=== PATIENT | male | born 1975 | race Caucasian/White ===

== ENCOUNTER 2020-10-28 05:36 | Observation (INO) | payer OTHER ==
[2020-10-28] MEDS ORDERED: Ondansetron 4 MG/2 ML SDV IVPUSH ONE (05:55)
[2020-10-28] MEDS ORDERED: HYDROmorphone 1 MG/ML Syringe IVPUSH ONE (05:55)
[2020-10-28] MEDS ORDERED: Sodium Chloride 0.9% 10 ML Syringe FLUSH PRN (05:55)
[2020-10-28] MEDS ORDERED: Sodium Chloride 0.9% 1,000 ML IV SCH (06:00)
--- NOTE | 2020-10-28 06:08 | EDM.PDOC ---
ED HPI GENERAL MEDICAL PROBLEM - General Chief Complaint: Abdominal Pain Stated Complaint: ABDOMINAL PAIN Time Seen by Provider: 10/28/20 05:54 Source of Information: Reports: Patient History Limitations: Reports: No Limitations - History of Present Illness INITIAL COMMENTS - FREE TEXT/NARRATIVE: Boyd is a 45-year-old male from [facility] presenting to the ED with acute onset of severe right lower quadrant pain associated with anorexia, diaphoresis and chills. The patient is currently camping and was in his usual state of health when he went to bed last night. He woke up in the 10th this morning with shaking chills. He has 10 out of 10 right lower quadrant abdominal pain. He does have some nausea but has not vomited. He had a normal bowel movement yesterday. He denies any diarrhea. He does have a history of kidney stones but states that this feels much different. His past surgeries are significant for tonsils and adenoids but he still has his appendix and gallbladder. He is otherwise healthy. RLQ Pain Score (Numeric/FACES): 9 - Related Data Allergies Allergy/AdvReac Type Severity Reaction Status Date / Time No Known Allergies Allergy Verified 10/28/20 05:44 Home Meds: Home Meds Omeprazole 20 mg PO DAILY 10/28/20 [History] Past Medical History Respiratory History: Reports: Asthma, Other (See Below) Other Respiratory History: exercise induced asthma Gastrointestinal History: Reports: Other (See Below) Other Gastrointestinal History: Acid reflux Genitourinary History: Reports: Renal Calculus Musculoskeletal History: Reports: Fracture Psychiatric History: Reports: Anxiety Dermatologic History: Reports: Other (See Below) Other Dermatologic History: disecting cellulitis of the scalp - Infectious Disease History Infectious Disease History: Reports: Chicken Pox - Past Surgical History HEENT Surgical History: Reports: Adenoidectomy Social & Family History - Tobacco Use Tobacco Use Status *Q: Never Tobacco User - Caffeine Use Caffeine Use: Reports: Coffee, Soda, Tea - Recreational Drug Use Recreational Drug Use: No ED ROS GENERAL - Review of Systems Review Of Systems: See Below Constitutional: Reports: Chills, Malaise, Diaphoresis, Decreased Appetite HEENT: Reports: No Symptoms Respiratory: Reports: No Symptoms Cardiovascular: Reports: No Symptoms Endocrine: Reports: No Symptoms GI/Abdominal: Reports: Abdominal Pain (Right lower quadrant abdominal pain), Anorexia, Decreased Appetite, Nausea. Denies: Diarrhea, Vomiting : Reports: No Symptoms Musculoskeletal: Reports: No Symptoms Skin: Reports: Pallor Neurological: Reports: No Symptoms Psychiatric: Reports: No Symptoms Hematologic/Lymphatic: Reports: No Symptoms Immunologic: Reports: No Symptoms ED EXAM, GI/ABD - Physical Exam Exam: See Below Exam Limited By: No Limitations General Appearance: Alert, Anxious, Moderate Distress Eyes: Bilateral: EOMI Throat/Mouth: Normal Inspection, Normal Oropharynx, Normal Voice, No Airway Compromise Head: Atraumatic, Normocephalic Neck: Normal Inspection, Supple, Non-Tender, Full Range of Motion Respiratory/Chest: No Respiratory Distress, Lungs Clear, Normal Breath Sounds Cardiovascular: Normal Peripheral Pulses, Regular Rate, Rhythm GI/Abdominal Exam: Guarding (Right lower quadrant), Rebound (Plus or minus rebound tenderness), Tender (Right lower quadrant), Abnormal Bowel Sounds (Decreased bowel sounds) Back Exam: Normal Inspection, Full Range of Motion. No: CVA Tenderness (L) Extremities: Normal Inspection, Normal Range of Motion, No Pedal Edema, Normal Capillary Refill Neurological: Alert, Oriented, Normal Cognition, No Motor/Sensory Deficits Psychiatric: Normal Affect, Anxious Skin Exam: Warm, Dry, Intact, Pallor Lymphatic: No Adenopathy Course - Vital Signs Last Recorded V/S: Last Vital Signs Temp 36.0 C L 10/28/20 05:53 Pulse 38 L 10/28/20 05:53 Resp 22 H 10/28/20 05:53 BP 137/70 10/28/20 05:53 Pulse Ox 98 10/28/20 05:53 - Orders/Labs/Meds Orders: Active Orders 24 hr Category Date Time Status Abdomen Pelvis w Cont [CT] Stat Exams 10/28/20 05:55 Ordered UA W/MICROSCOPIC [URIN] Stat Lab 10/28/20 05:55 Ordered Sodium Chloride 0.9% [Normal Saline] 1,000 ml Med 10/28/20 06:00 Ordered IV ASDIRECTED Sodium Chloride 0.9% [Normal Saline] 78 ml Med 10/28/20 06:15 Ordered IV ASDIRECTED Sodium Chloride 0.9% [Saline Flush] Med 10/28/20 05:55 Ordered 10 ml FLUSH ASDIRECTED PRN Saline Lock Insert [OM.PC] Routine Oth 10/28/20 05:55 Ordered Medication Orders Sodium Chloride (Normal Saline) 1,000 mls @ 999 mls/hr IV ASDIRECTED SNOW Last Admin: 10/28/20 06:02 Dose: 999 mls/hr Documented by: ADAMARIS Sodium Chloride (Normal Saline) 78 mls @ 3.5 mls/sec IV ASDIRECTED SNOW Last Admin: 10/28/20 06:26 Dose: 3.5 mls/sec Documented by: ABHI Sodium Chloride (Sodium Chloride 0.9% 10 Ml Syringe) 10 ml FLUSH ASDIRECTED PRN PRN Reason: Keep Vein Open Last Admin: 10/28/20 06:05 Dose: 10 ml Documented by: ADAMAIRS Labs: Laboratory Tests 10/28/20 10/28/20 10/28/20 Range/Units 05:52 05:52 06:06 WBC 8.5 (4.5-11.0) K/uL RBC 4.82 (4.30-5.90) M/uL Hgb 14.5 (12.0-15.0) g/dL Hct 43.3 (40.0-54.0) % POC Hct 41 (36-48) % MCV 90 (80-98) fL MCH 30 (27-31) pg MCHC 34 (32-36) % Plt Count 268 (150-400) K/uL Neut % (Auto) 73.1 H (36-66) % Lymph % (Auto) 16.6 L (24-44) % Jasper % (Auto) 7.2 H (2-6) % Eos % (Auto) 2.2 (2-4) % Baso % (Auto) 0.9 (0-1) % POC Capillary pH 7.30 L (7.31-7.41) POC Capillary pCO2 54.8 H (41.0-51.0) mmHg POC Capillary pO2 28 L* mmHg POC Capillary HCO3 26.7 (23.0-28.0) mmol/L POC Capill Base Excess 0 mmol/L POC Capillary O2 Sat 50 % POC Sodium 144 (140-148) mmol/L POC Potassium 3.6 (3.5-4.9) mmol/L POC Total CO2 26.7 (24-29) mmol/L Creatinine 1.0 (0.8-1.3) mg/dL Est Cr Clr Drug Dosing 97.33 mL/min Estimated GFR (MDRD) > 60 (>60) POC WB Ioniz Calcium 1.22 (1.12-1.32) mmol/L Meds: Medications Generic Name Dose Route Start Last Admin Trade Name Freq PRN Reason Stop Dose Admin Sodium Chloride 1,000 mls @ 999 mls/hr 10/28/20 06:00 10/28/20 06:02 Normal Saline IV 999 mls/hr ASDIRECTED SNOW Administration Sodium Chloride 78 mls @ 3.5 mls/sec 10/28/20 06:15 10/28/20 06:26 Normal Saline IV 3.5 mls/sec ASDIRECTED SNOW Administration Sodium Chloride 10 ml 10/28/20 05:55 10/28/20 06:05 Sodium Chloride 0.9% 10 Ml Syringe FLUSH 10 ml ASDIRECTED PRN Administration Keep Vein Open Discontinued Medications Generic Name Dose Route Start Last Admin Trade Name Kimberly PRN Reason Stop Dose Admin Hydromorphone HCl 1 mg 10/28/20 05:55 10/28/20 06:01 Hydromorphone 1 Mg/Ml Syringe IVPUSH 10/28/20 05:56 1 mg ONETIME ONE Administration Iopamidol 127 ml 10/28/20 06:11 10/28/20 06:26 Iopamidol 612 Mg/Ml 500 Ml Multipack Bottle IV 10/28/20 06:12 127 ml ONETIME ONE Administration Ketorolac Tromethamine 30 mg 10/28/20 06:32 10/28/20 06:38 Ketorolac 30 Mg/Ml Sdv IVPUSH 10/28/20 06:33 30 mg ONETIME ONE Administration Ondansetron HCl 4 mg 10/28/20 05:55 10/28/20 06:02 Ondansetron 4 Mg/2 Ml Sdv IVPUSH 10/28/20 05:56 4 mg ONETIME ONE Administration Sodium Chloride 10 ml 10/28/20 06:11 10/28/20 06:26 Sodium Chloride 0.9% 10 Ml Syringe FLUSH 10/28/20 06:12 10 ml ONETIME ONE Administration - Radiology Interpretation Free Text/Narrative:: Millimeter stone in the proximal right ureter causing mild hydronephrosis and hydroureter. This appears to be about 5-1/2 to 6 cm below the renal pelvis. No other stones are identified, however, it is limited by IV contrast. The appendix is normal in size and is retrocecal. No other intra-abdominal abnormalities noted. - Re-Assessments/Exams Free Text/Narrative Re-Assessment/Exam: 10/28/20 06:08 an IV was established and labs were obtained including a CBC, basic metabolic profile, and urinalysis. Normal saline IV fluids were started 9 9 9 mL/h. Patient received Dilaudid 1 mg IV push and Zofran 4 mg IV push. The patient was sent off to CT of the abdomen pelvis with contrast. 10/28/20 06:[address] of the abdomen and pelvis with contrast showing a 5 mm ureterolithiasis in the proximal right ureter approximately 5 cm below the renal pelvis. The patient's labs show a normal CBC and venous blood gas. The patient has a sodium of 138 and a potassium of 4.6 with a bicarbonate of 26. Patient had no response to Dilaudid 1 mg IV so he was subsequently given Toradol 30 mg IV. He is still in significant pain and will likely need admission for pain control. The patient is camping and has limited access to adequate hydration. It is also unlikely that oral pain medicines are going to be adequate to control his pain thereby strengthening my position that he will likely need observation admission for pain control. I discussed the case with Dr. Momin will arrange for an observation admission for pain control. He will see the patient on the floor for the admission. Departure - Departure Time of Disposition: 07:00 Disposition: Refer to Observation Clinical Impression: Renal colic on right side, Calcium ureterolithiasis Hydronephrosis Qualifiers: Hydronephrosis type: with renal calculous obstruction Qualified Code(s): N13.2 - Hydronephrosis with renal and ureteral calculous obstruction - Discharge Information Referrals: PCP,None [Primary Care Provider] - Forms: ED Department Discharge Sepsis Event Note (ED) - Evaluation Sepsis Screening Result: No Definite Risk - Focused Exam Vital Signs: Vital Signs Temp Pulse Resp BP Pulse Ox 10/28/20 05:53 36.0 C L 38 L 22 H 137/70 98 10/28/20 05:52 36.0 C L 38 L 22 H 137/70 98 - Problem List & Annotations (1) Calcium ureterolithiasis SNOMED Code(s): 27936678 Code(s): N20.1 - CALCULUS OF URETER Status: Acute Priority: High Current Visit: Yes (2) Hydronephrosis SNOMED Code(s): 92848550 Code(s): N13.30 - UNSPECIFIED HYDRONEPHROSIS Status: Acute Priority: High Current Visit: Yes Qualifiers: Hydronephrosis type: with renal calculous obstruction Qualified Code(s): N13.2 - Hydronephrosis with renal and ureteral calculous obstruction (3) Renal colic on right side SNOMED Code(s): 8909043 Code(s): N23 - UNSPECIFIED RENAL COLIC Status: Acute Priority: High Current Visit: Yes - Problem List Review Problem List Initiated/Reviewed/Updated: Yes - My Orders Last 24 Hours: My Active Orders 10/28/20 05:55 Abdomen Pelvis w Cont [CT] Stat UA W/MICROSCOPIC [URIN] Stat Sodium Chloride 0.9% [Saline Flush] 10 ml FLUSH ASDIRECTED PRN Saline Lock Insert [OM.PC] Routine 10/28/20 06:00 Sodium Chloride 0.9% [Normal Saline] 1,000 ml IV ASDIRECTED 10/28/20 06:15 Sodium Chloride 0.9% [Normal Saline] 78 ml IV ASDIRECTED - Assessment/Plan Last 24 Hours: My Active Orders 10/28/20 05:55 Abdomen Pelvis w Cont [CT] Stat UA W/MICROSCOPIC [URIN] Stat Sodium Chloride 0.9% [Saline Flush] 10 ml FLUSH ASDIRECTED PRN Saline Lock Insert [OM.PC] Routine 10/28/20 06:00 Sodium Chloride 0.9% [Normal Saline] 1,000 ml IV ASDIRECTED 10/28/20 06:15 Sodium Chloride 0.9% [Normal Saline] 78 ml IV ASDIRECTED
[2020-10-28] MEDS ORDERED: Iopamidol 612 MG/ML 500 ML Multipack Bottle IV ONE (06:11)
[2020-10-28] MEDS ORDERED: Sodium Chloride 0.9% 10 ML Syringe FLUSH ONE (06:11)
[2020-10-28] MEDS ORDERED: Ketorolac 30 MG/ML SDV IVPUSH ONE (06:32)
[2020-10-28] MEDS ORDERED: Ondansetron 4 MG/2 ML SDV IVPUSH PRN (07:16)
--- NOTE | 2020-10-28 07:18 | CRLCT ---
HISTORY: Right lower quadrant pain. TECHNIQUE: CT abdomen and pelvis with IV contrast. 127 mL Isovue 300 IV. COMPARISON: None. FINDINGS: Abdomen: Approximately 8 x 1.5 cm lentiform area of hypodensity along the posterior lateral right lobe of the liver may be hepatic fluid or subcapsular. Few subcentimeter hypodense lesions in the liver are too small to characterize. No bile duct dilation. No pancreatic mass or pancreatic duct dilation. No spleen lesions. No adrenal nodules. Mildly decreased enhancement of the right kidney. 5 mm calculus in the proximal right ureter near the ureterovesical junction. Mild right hydronephrosis. No renal mass. No hydronephrosis on the left. No dilated bowel. Appendix is unremarkable. No free fluid. No lymphadenopathy. Abdominal aorta is normal caliber. Minimal aortic atherosclerosis. Pelvis: No lymphadenopathy. Musculoskeletal: Degenerative changes of the spine. Lower chest: Unremarkable. IMPRESSION: 1. 5 mm calculus in the proximal right ureter with mild right hydronephrosis. 2. Small amount of perihepatic fluid along the right lobe of the liver versus chronic subcapsular collection from prior hepatic insult. Dictated by Aly Ugalde MD @ 10/28/2020 7:18:11 AM Please note that all CT scans at this facility use dose modulation, iterative reconstruction, and/or weight-based dosing when appropriate to reduce radiation dose to as low as reasonably achievable. Dictated by: Aly Ugalde MD @ 10/28/2020 07:18:14 (Electronically Signed)
[2020-10-28] MEDS ORDERED: HYDROmorphone 0.5 MG/0.5 ML Syringe IVPUSH PRN (07:19)
[2020-10-28] MEDS ORDERED: Pantoprazole 40 MG Vial IVPUSH SCH (08:30)
[2020-10-28] MEDS ORDERED: Tamsulosin 0.4 MG Cap.ER PO SCH (09:00)
--- NOTE | 2020-10-28 09:37 | HP ---
IDENTIFYING DATA: Boyd Driver is a 45-year-old male from [place], [place]. CHIEF COMPLAINT: Right-sided abdominal pain. HISTORY OF PRESENT ILLNESS: This previously well 45-year-old male from [place] is camping at a local resort in [place], [place] with family. He reports he retired to bed without symptoms and awoke at 0400 with severe pain of the right mid to lower abdomen. He had accompanying nausea without emesis. Denies radiation to the inguinal area or left hemiabdomen. Mild transient aching at the right flank was also reported. He has had no diarrhea, melena, urinary urgency, incontinence, dysuria, or gross hematuria. He does report after an intensive run several weeks ago, he had a transient episode of visible hematuria and attributed this to the intensity of exercise. He has a remote history of single episode of ureteral stones characterized by mild aching in the lower abdomen. This was evaluated by his hometown physician and managed with diuresis and increased fluid intake. He has not had recurring episodes. He reports he believes he has had a previous inguinal herniorrhaphy in plate [place]. PAST MEDICAL HISTORY: Previous surgeries include adenoidectomy only as well as inguinal herniorrhaphy. No history of hypertension, diabetes, congenital heart disease, rheumatic fever, respiratory disease, or disease. He does have a history of chronic intermittent dyspepsia, managed with p.r.n. use of PPI agents. ALLERGIES: NONE NOTED. MEDICATIONS: Omeprazole 20 mg daily as needed for chronic dyspepsia. HABITS: Nonsmoker. Modest caffeinated beverage intake, estimating 2 to 5 coffees per day. Alcohol use is rare with 2 consumed during this week's family vacation. Immunizations reviewed. Has received COVID vaccine. SOCIAL HISTORY: Currently , vacationing and camping in the [place], [place] area with family including school age children and extended family including siblings and mother. He is attending [employer] school working on a degree in engineering with plans to proceed with a master's program as well. FAMILY HISTORY: Denies familial history of or GI disease. No familial history of recent acute gastrointestinal illness. REVIEW OF SYSTEMS: NEUROLOGIC: No history of headaches, strokes, seizures, auditory or visual changes. CARDIAC: No history of hypertension, diabetes, congenital heart disease, rheumatic fever, chest pain, palpitations, syncope. RESPIRATORY: Does report a history of mild childhood asthma with exercise-induced symptoms, managed with p.r.n. use of albuterol inhaler. No current difficulty noted with respiratory disease. Does have mild environmental allergies by his report. : Denies hepatitis, jaundice, gallbladder disease, constipation, melena, or hematochezia. : As above. MUSCULOSKELETAL: Without arthralgias. PHYSICAL EXAMINATION: APPEARANCE: That of an adult male, currently in no acute distress, noting resolution of his right-sided pain with analgesic therapy. INITIAL VITALS: Temperature 36 degrees centigrade, pulse 38, respiratory rate 22, blood pressure 137/70, O2 sats 98% on room air. HEENT: Sclerae anicteric. Hearing is intact. No facial asymmetries. Oral mucosa is moist and pink. NECK: Brisk carotid pulses. No stridor, adenopathy, or nuchal rigidity. LUNGS: Symmetrical and clear. HEART: Regular without murmurs or gallops. ABDOMEN: Nondistended. Active sounds. No organomegaly. Good femoral pulses. No CVA tenderness. No guarding, rebound, referred pain, or tenderness to deep palpation. Earlier discomfort in the right hemiabdomen has resolved. EXTREMITIES: Warm, pink, and dry. Good arterial pulses. Brisk capillary refill. Nonjaundiced. LABORATORY DATA: WBC 8.5, hemoglobin 14.5, platelet count 268,000. Creatinine 1. GFR greater than 60. CT of the abdomen reveals a 5 mm ureteral stone, approximately 5 cm from the renal pelvis, otherwise unremarkable. IMPRESSION: 1. Right ureterolithiasis with accompanying pain. 2. Otherwise, well-adult male. PLAN: The patient had intractable pain on arrival, unresponsive to administration of IV Dilaudid. Subsequent administration of IV Toradol led to significant reduction in intensity of pain and now the patient reports he is essentially pain free. We will admit to observation with IV fluids. Provide clear liquid diet as tolerated. Allow activity as tolerated. We will initiate Flomax and p.r.n. Dilaudid and Toradol for recurrent discomfort. If he has no relapsing ureteral colic over the next 4 to 6 hours, would consider discharge to home with outpatient followup with his hometown primary physician during the next several days, which suggests straining urine in an effort to identify the stone and if collected, consider stone analysis. Smooth Momin MD /[id number]
[2020-10-28] MEDS ORDERED: Ketorolac 30 MG/ML SDV IVPUSH PRN (12:30)
--- NOTE | 2020-10-28 13:46 | PCM.DCSUM1 ---
Discharge Summary - Hospital Course Free Text/Narrative:: Mr. Driver is a 45-year-old white male who was camping with his when he awoke at 4 AM in the morning in excruciating pain and associated nausea. He came to the emergency department where a CT was done showing a 5 mm renal stone in the right ureter. He was given pain control with morphine and then ketorolac which controlled his pain significantly. Since getting the ketorolac he had been feeling no pain. His urine was strained but no stone was seen. By the afternoon he was still feeling no pain and ready to go home. He was able to eat, drink, and urinate without any issues. This was his second episode of having kidney stones the first was several years ago and was successfully managed outpatient. Diagnosis: Stroke: No Modified [place] Scale: No Symptoms at All Modified [place] Scale Score: 0 - Discharge Data Discharge Date: 10/28/20 Discharge Disposition: Home, Self-Care 01 Condition: Good - Referral to Home Health Primary Care Physician: PCP None - Discharge Diagnosis/Problem(s) (1) Right renal stone SNOMED Code(s): 25292088 ICD Code: N20.0 - CALCULUS OF KIDNEY Status: Acute Current Visit: Yes - Patient Instructions Diet: Usual Diet as Tolerated Diet, Other: Increase water intake especially with caffeine, alcohol, and dried foods. - Discharge Plan Prescriptions/Med Rec: Tamsulosin [Flomax] 0.4 mg PO DAILY #5 cap.er Home Medications: Home Meds Omeprazole 20 mg PO DAILY 10/28/20 [History] Tamsulosin [Flomax] 0.4 mg PO DAILY #5 cap.er 10/28/20 [Rx] Forms: ED Department Discharge Referrals: PCP,None [Primary Care Provider] - - Discharge Summary/Plan Comment DC Time >30 min.: Yes Discharge Summary/Plan Comment: We will send Mr. Driver home with a prescription for tamsulosin to increase his urinary stream to help him pass the stone from his bladder. We will also send him with a collection cup and a urine strainer so he can try and catch the stone. He was advised to take the stone to his primary care physician. He was advised to take the tamsulosin for 5 days unless he does feel the stone pass or has hematuria. He was advised to increase his water intake especially under certain circumstances. He will follow up with his primary care physician when he is done camping. - General Info Date of Service: 10/28/20 Admission Dx/Problem (Free Text: Right kidney stone 5 mm Functional Status: Reports: Pain Controlled, Tolerating Diet, Ambulating, Urinating. Denies: New Symptoms - Review of Systems General: Reports: No Symptoms, Appetite. Denies: Fever, Weakness, Fatigue, Malaise, Chills HEENT: Reports: No Symptoms. Denies: Headaches, Visual Changes Pulmonary: Reports: No Symptoms. Denies: Shortness of Breath, Cough Cardiovascular: Reports: No Symptoms. Denies: Chest Pain, Palpitations Gastrointestinal: Reports: No Symptoms. Denies: Abdominal Pain, Constipation, Diarrhea, Nausea, Vomiting Genitourinary: Reports: No Symptoms. Denies: Dysuria, Frequency, Hematuria, Flank Pain Musculoskeletal: Reports: No Symptoms Skin: Reports: No Symptoms Neurological: Reports: No Symptoms. Denies: Dizziness, Headache - Patient Data Vitals - Most Recent: Last Vital Signs Temp 97.3 F 10/28/20 12:00 Pulse 59 L 10/28/20 12:00 Resp 16 10/28/20 12:00 BP 115/75 10/28/20 12:00 Pulse Ox 97 10/28/20 12:00 Weight - Most Recent: 184 lb 9.6 oz I&O - Last 24 hours: Intake & Output 10/27/20 10/28/20 10/28/20 22:59 06:59 14:59 Intake Total 2160 Output Total 1475 Balance 685 Lab Results - Last 24 hrs: Laboratory Results - last 24 hr 10/28/20 10/28/20 10/28/20 Range/Units 05:52 05:52 06:06 WBC 8.5 (4.5-11.0) K/uL RBC 4.82 (4.30-5.90) M/uL Hgb 14.5 (12.0-15.0) g/dL Hct 43.3 (40.0-54.0) % POC Hct 41 (36-48) % MCV 90 (80-98) fL MCH 30 (27-31) pg MCHC 34 (32-36) % Plt Count 268 (150-400) K/uL Neut % (Auto) 73.1 H (36-66) % Lymph % (Auto) 16.6 L (24-44) % [place] % (Auto) 7.2 H (2-6) % Eos % (Auto) 2.2 (2-4) % Baso % (Auto) 0.9 (0-1) % POC Capillary pH 7.30 L (7.31-7.41) POC Capillary pCO2 54.8 H (41.0-51.0) mmHg POC Capillary pO2 28 L* mmHg POC Capillary HCO3 26.7 (23.0-28.0) mmol/L POC Capill Base Excess 0 mmol/L POC Capillary O2 Sat 50 % POC Sodium 144 (140-148) mmol/L POC Potassium 3.6 (3.5-4.9) mmol/L POC Total CO2 26.7 (24-29) mmol/L Creatinine 1.0 (0.8-1.3) mg/dL Est Cr Clr Drug Dosing 97.33 mL/min Estimated GFR (MDRD) > 60 (>60) POC WB Ioniz Calcium 1.22 (1.12-1.32) mmol/L Urine Color (YELLOW) Urine Appearance (CLEAR) Urine pH (5.0-8.0) Ur Specific [place] (1.008-1.030) Urine Protein (NEGATIVE) mg/dL Urine Glucose (UA) (NEGATIVE) mg/dL Urine Ketones (NEGATIVE) mg/dL Urine Occult Blood (NEGATIVE) Urine Nitrite (NEGATIVE) Urine Bilirubin (NEGATIVE) Urine Urobilinogen (0.2-1.0) EU/dL Ur Leukocyte Esterase (NEGATIVE) Urine RBC (0-5) Urine WBC (0-5) Ur Epithelial Cells Amorphous Sediment Urine Bacteria Urine Mucus 10/28/20 Range/Units 07:11 WBC (4.5-11.0) K/uL RBC (4.30-5.90) M/uL Hgb (12.0-15.0) g/dL Hct (40.0-54.0) % POC Hct (36-48) % MCV (80-98) fL MCH (27-31) pg MCHC (32-36) % Plt Count (150-400) K/uL Neut % (Auto) (36-66) % Lymph % (Auto) (24-44) % [place] % (Auto) (2-6) % Eos % (Auto) (2-4) % Baso % (Auto) (0-1) % POC Capillary pH (7.31-7.41) POC Capillary pCO2 (41.0-51.0) mmHg POC Capillary pO2 mmHg POC Capillary HCO3 (23.0-28.0) mmol/L POC Capill Base Excess mmol/L POC Capillary O2 Sat % POC Sodium (140-148) mmol/L POC Potassium (3.5-4.9) mmol/L POC Total CO2 (24-29) mmol/L Creatinine (0.8-1.3) mg/dL Est Cr Clr Drug Dosing mL/min Estimated GFR (MDRD) (>60) POC WB Ioniz Calcium (1.12-1.32) mmol/L Urine Color Brown A (YELLOW) Urine Appearance Cloudy A (CLEAR) Urine pH 5.5 (5.0-8.0) Ur Specific [place] 1.025 (1.008-1.030) Urine Protein 100 H (NEGATIVE) mg/dL Urine Glucose (UA) Negative (NEGATIVE) mg/dL Urine Ketones Negative (NEGATIVE) mg/dL Urine Occult Blood Large H (NEGATIVE) Urine Nitrite Negative (NEGATIVE) Urine Bilirubin Small H (NEGATIVE) Urine Urobilinogen 0.2 (0.2-1.0) EU/dL Ur Leukocyte Esterase Negative (NEGATIVE) Urine RBC Packed H (0-5) Urine WBC Not seen (0-5) Ur Epithelial Cells Not seen Amorphous Sediment Many Urine Bacteria Rare Urine Mucus Rare Med Orders - Current: Current Medications Hydromorphone HCl (Hydromorphone 0.5 Mg/0.5 Ml Syringe) 0.5 mg IVPUSH Q2H PRN PRN Reason: Pain Ketorolac Tromethamine (Ketorolac 30 Mg/Ml Sdv) 30 mg IVPUSH Q6H PRN PRN Reason: Pain Stop: 11/02/20 12:31 Ondansetron HCl (Ondansetron 4 Mg/2 Ml Sdv) 4 mg IVPUSH Q4H PRN PRN Reason: Nausea/Vomiting Pantoprazole Sodium (Pantoprazole 40 Mg Vial) 40 mg IVPUSH Q24H [facility] Last Admin: 10/28/20 08:43 Dose: 40 mg Documented by: Sodium Chloride (Sodium Chloride 0.9% 10 Ml Syringe) 10 ml FLUSH ASDIRECTED PRN PRN Reason: Keep Vein Open Last Admin: 10/28/20 06:05 Dose: 10 ml Documented by: Tamsulosin HCl (Tamsulosin 0.4 Mg Cap.Er) 0.4 mg PO DAILY [facility] Last Admin: 10/28/20 08:41 Dose: 0.4 mg Documented by: Discontinued Medications Hydromorphone HCl (Hydromorphone 1 Mg/Ml Syringe) 1 mg IVPUSH ONETIME ONE Stop: 10/28/20 05:56 Last Admin: 10/28/20 06:01 Dose: 1 mg Documented by: Sodium Chloride (Normal Saline) 1,000 mls @ 999 mls/hr IV ASDIRECTED [facility] Last Admin: 10/28/20 06:02 Dose: 999 mls/hr Documented by: Sodium Chloride (Normal Saline) 78 mls @ 3.5 mls/sec IV ASDIRECTED [facility] Stop: 10/28/20 12:00 Last Admin: 10/28/20 06:26 Dose: 3.5 mls/sec Documented by: Iopamidol (Iopamidol 612 Mg/Ml 500 Ml Multipack Bottle) 127 ml IV ONETIME ONE Stop: 10/28/20 06:12 Last Admin: 10/28/20 06:26 Dose: 127 ml Documented by: Ketorolac Tromethamine (Ketorolac 30 Mg/Ml Sdv) 30 mg IVPUSH ONETIME ONE Stop: 10/28/20 06:33 Last Admin: 10/28/20 06:38 Dose: 30 mg Documented by: Ondansetron HCl (Ondansetron 4 Mg/2 Ml Sdv) 4 mg IVPUSH ONETIME ONE Stop: 10/28/20 05:56 Last Admin: 10/28/20 06:02 Dose: 4 mg Documented by: Sodium Chloride (Sodium Chloride 0.9% 10 Ml Syringe) 10 ml FLUSH ONETIME ONE Stop: 10/28/20 06:12 Last Admin: 10/28/20 06:26 Dose: 10 ml Documented by: - Exam General: Reports: Alert, Oriented, Cooperative, No Acute Distress HEENT: Reports: Pupils Equal, EOMI, Mucous Membr. Moist/Ebony Lungs: Reports: Clear to Auscultation, Normal Respiratory Effort Cardiovascular: Reports: Regular Rate, Regular Rhythm GI/Abdominal Exam: Normal Bowel Sounds, Soft, Non-Tender, No Distention Back Exam: Reports: Normal Inspection, Full Range of Motion Extremities: Normal Inspection, Non-Tender, No Pedal Edema, Normal Capillary Refill Skin: Reports: Warm, Dry, Intact Neurological: Reports: No New Focal Deficit Psy/Mental Status: Reports: Alert, Normal Affect, Normal Mood
== END 2020-10-28 14:10 | disposition home or self-care (01) ==
LOC: JP.ED 05:36 → JP.MS 06:49
PROVIDERS: ADMIT Family Medicine; ATTEND Family Medicine
DX: N13.2 Hydronephrosis with renal and ureteral calculous obstruction (principal); Z98.890 Other specified postprocedural states; Z79.899 Other long term (current) drug therapy
CPT/HCPCS: 36415; 74177; 81001; 82330; 82565; 82803; 84132; 84295; 85014; 85025; 96374; 96375; 99284; 99285; A9270; C9113; J1170; J1885; J2405; J7030; Q9967; G0378